=== PATIENT | female | born 1970 | race Caucasian/White ===

== ENCOUNTER 2024-06-18 14:36 | Emergency (ER) | payer MEDICAID ==
[~2024-06-18] VITALS: Ht 157.5 cm; Wt 59.0 kg
[2024-06-18 16:29] LABS: BASOPHILS % (AUTO) 0.6 % (0.0-2.0); EOSINOPHILS # (AUTO) 0.1 K/uL (0.0-0.7); EOSINOPHILS % (AUTO) 2.1 % (0.0-7.0); HEMATOCRIT 33.6 % (31.2-41.9); HEMOGLOBIN 11.6 g/dL (10.9-14.3); LYMPHOCYTES # (AUTO) 1.6 K/uL (0.8-4.8); LYMPHOCYTES % (AUTO) 42.1 % (20.5-51.5); MEAN CORPUSCULAR HEMOGLOBIN 34.1 uug (24.7-32.8); MEAN CORPUSCULAR HGB CONC 35 g/dL (32.3-35.6); MEAN CORPUSCULAR VOLUME 98.6 fL (75.5-95.3); MONOCYTES # (AUTO) 0.5 K/uL (0.1-1.30); MONOCYTES % (AUTO) 14.1 % (0.0-11.0); NEUTROPHILS # (AUTO) 1.6 K/uL (1.8-8.9); NEUTROPHILS % (AUTO) 41.1 % (38.5-71.5); PLATELET COUNT (AUTO) 391 K/uL (179-408); RED BLOOD CELL COUNT(AUTO) 3.41 MIL/uL (3.63-4.92); WHITE BLOOD COUNT (AUTO) 3.8 K/uL (3.8-11.8)
[2024-06-18 16:30] LABS: DIFFERENTIAL COMMENT 1
[2024-06-18 16:36] LABS: CALCIUM 8.7 mg/dL (8.5-10.1); CARBON DIOXIDE 32 mmol/L (21-32); CHLORIDE 105 mmol/L (98-107); CREATININE 0.7 mg/dL (0.6-1.3); GLUCOSE 89 mg/dL (74-106); POTASSIUM 3.9 mmol/L (3.5-5.1); SODIUM SERUM 142 mmol/L (136-145); UREA NITROGEN, BLOOD 6 mg/dL (7-18)
[2024-06-18 16:49] LABS: ALANINE AMINOTRANSFERASE 71 U/L (14-59); ALBUMIN 2.2 g/dL (3.4-5.0); ALKALINE PHOSPHATASE 86 U/L (50-136); ASPARTATE AMINOTRANSFERASE 33 U/L (15-37); BILIRUBIN,DIRECT 0.1 mg/dL (0.0-0.2); BILIRUBIN,TOTAL 0.2 mg/dL (0.2-1.0); NT-PRO BNP 309 pg/mL (0-125); TOTAL PROTEIN, SERUM 5.5 g/dL (6.4-8.2)
[2024-06-18 18:06] VITALS: BP 111/71; O2SAT 99
== END 2024-06-18 17:43 | disposition home or self-care (01) ==
LOC: ER 14:36
DX: R60.0 Localized edema (principal); E88.09 Other disorders of plasma-protein metabolism, not elsewhere classified; D70.9 Neutropenia, unspecified; R74.01 Elevation of levels of liver transaminase levels; M79.604 Pain in right leg; M79.605 Pain in left leg; M79.7 Fibromyalgia; Z88.5 Allergy status to narcotic agent
CPT/HCPCS: 36415; 84484; 85025; 85730; A4606; A4663